=== PATIENT | female | born 2000 | race Two or more races ===

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

== ENCOUNTER 2020-07-29 09:06 | Emergency (ER) | payer MEDICAID, OTHER ==
[~2020-07-29] VITALS: Ht 165.1 cm; Wt 132.3 kg
[2020-07-29] MEDS ORDERED: BCP (09:19)
[2020-07-29] MEDS ORDERED: ACETAMINOPHEN 325 MG TAB PO ONE (09:30)
[2020-07-29 11:20] VITALS: BP 131/85
== END 2020-07-29 11:28 | disposition home or self-care (01) ==
LOC: M ED 09:06
DX: S92.351A Displaced fracture of fifth metatarsal bone, right foot, initial encounter for closed fracture (principal); W10.8XXA Fall (on) (from) other stairs and steps, initial encounter; Y92.9 Unspecified place or not applicable; Y93.9 Activity, unspecified; Y99.9 Unspecified external cause status; F41.9 Anxiety disorder, unspecified

== ENCOUNTER → 2020-09-22 | Outpatient (CLI) | payer SELFPAY ==
[~2020-09-22] MED LIST: BCP
== END ==
LOC: M LABSMTC 16:50
PROVIDERS: ATTEND Pediatrics
DX: Z20.828 Contact with and (suspected) exposure to other viral communicable diseases (principal)

== ENCOUNTER 2021-09-18 14:36 | Outpatient (CLI) | payer OTHER ==
[~2021-09-18] VITALS: Ht 167.6 cm; Wt 108.9 kg
[~2021-09-18 14:36] MED LIST changes: +ACETAMINOPHEN TAB 650MG DOSE (2X325MG) PO ONE; +ALBUTEROL 90 MCG/ACT 8GM HFA INHALER INH PRN; +ALBUTEROL SULFATE 2.5 MG/0.5 ML INH NEB SOLN INH PRN; +CASIRIVIMAB/IMDEVIMAB 1,200 MG in NS 250 ML IV ONE; +EPINEPHrine INJ 1 MG/ML 1ML AMP IM PRN; +NS 1,000 ML IV SCH; +diphenhydrAMINE 50MG/ML VIAL (J1200) IV PRN; +methylPREDNISolone 125MG 2ML VIAL IV PRN
[2021-09-18 15:27] VITALS: BP 132/63
[2021-09-18 15:57] VITALS: BP 109/61
[2021-09-18 16:27] VITALS: BP 116/59
[2021-09-18 17:27] VITALS: BP 113/65
== END 2021-09-18 17:27 | disposition home or self-care (01) ==
LOC: M OPCLI4PR 14:36
PROVIDERS: ATTEND Family Medicine
DX: U07.1 COVID-19 (principal)

== ENCOUNTER 2022-09-17 15:01 | Inpatient (IN) | payer OTHER ==
[~2022-09-17] VITALS: Ht 170.2 cm; Wt 143.6 kg
[~2022-09-17 15:01] MED LIST changes: -ACETAMINOPHEN TAB 650MG DOSE (2X325MG) PO ONE; -ALBUTEROL 90 MCG/ACT 8GM HFA INHALER INH PRN; -ALBUTEROL SULFATE 2.5 MG/0.5 ML INH NEB SOLN INH PRN; -CASIRIVIMAB/IMDEVIMAB 1,200 MG in NS 250 ML IV ONE; -EPINEPHrine INJ 1 MG/ML 1ML AMP IM PRN; -NS 1,000 ML IV SCH; -diphenhydrAMINE 50MG/ML VIAL (J1200) IV PRN; -methylPREDNISolone 125MG 2ML VIAL IV PRN
[2022-09-17] MEDS ORDERED: ONDA-195 PO (15:40)
[2022-09-17] MEDS ORDERED: ACET325C5 PO (15:40)
[2022-09-17] MEDS ORDERED: PRENTAB9 PO (15:40)
[2022-09-17] MEDS ORDERED: ECOT81TA5 PO (15:40)
[2022-09-17] MEDS ORDERED: HOME MED LIST COMPLETE! XX SCH (15:40)
[2022-09-17 16:18] LABS: HEMATOCRIT 33.9 % (36.0-47.0); HEMOGLOBIN 11.5 g/dl (12.0-15.5); MEAN CORPUSCULAR HEMOGLOBIN 29.1 pg (27.0-33.0); MEAN CORPUSCULAR HGB CONC 33.9 g/dl (32.0-36.5); MEAN CORPUSCULAR VOLUME 85.8 fl (80.0-96.0); PLATELET COUNT, AUTOMATED 238 10^3/uL (150-450); RED BLOOD COUNT 3.95 10^6/uL (4.00-5.40); WHITE BLOOD COUNT 9.4 10^3/uL (4.0-10.0)
[2022-09-17] MEDS ORDERED: LACTATED RINGER'S 1000 ML IV STA (16:31)
[2022-09-17] MEDS ORDERED: CARBOPROST TROMETHAMINE 250 MCG/ML AMP IM PRN (16:35)
[2022-09-17] MEDS ORDERED: TRANEXAMIC ACID INJection 1,000 MG in NS 100 ML IV PRN (16:35)
[2022-09-17] MEDS ORDERED: OXYTOCIN INJ 10UNITS/ML 1ML VIAL IM PRN (16:35)
[2022-09-17] MEDS ORDERED: LIDOCAINE 1% MDV 20ML VIAL INFIL PRN (16:35)
[2022-09-17] MEDS ORDERED: OXYTOCIN DRIP 30 UNITS in IV 1 EA IV PRN ×6 (16:35)
[2022-09-17] MEDS ORDERED: METHYLERGONOVINE MALEATE 0.2 MG/ML VIAL (J2210) IM PRN (16:35)
[2022-09-17 16:43] VITALS: BP 102/74
[2022-09-17] MEDS ORDERED: PENICILLIN G POTASSIUM 5 MU IV 5 MU in D5W MINI-BAG PLUS 100 ML IV STA (17:21)
[2022-09-17 18:19] VITALS: BP 116/70
[2022-09-17] MEDS: miSOPROStol 50MCG 1/2 TABLET PO SCH ×2 (18:20→21:30)
[2022-09-17 20:27] VITALS: BP 143/79
[2022-09-17] MEDS ORDERED: PEN G POT 3,000,000 UNIT/50 ML 3,000,000 UNIT in IV 1 EA IV SCH (21:25)
[2022-09-17 21:35] VITALS: BP 152/92
[2022-09-17 21:39] VITALS: BP 116/78
[2022-09-17 23:28] VITALS: BP 131/86
[2022-09-18] VITALS (15 sets, daily range): BP systolic 111–146; BP diastolic 58–80
[2022-09-18] MEDS: ONDANSETRON 4MG 2ML VIAL IV SCH ×6 (01:10→22:00)
[2022-09-18] MEDS: miSOPROStol 50MCG 1/2 TABLET PO SCH ×6 (01:30→21:30)
[2022-09-18] MEDS ORDERED: BUTORPHANOL 2 MG/ML 1ML VIAL IV ONE (02:00)
[2022-09-18] MEDS: LR 1,000 ML IV SCH ×2 (03:06→15:19)
[2022-09-18] MEDS ORDERED: **PENDING PCN ENTRY XX SCH (09:00)
[2022-09-18] MEDS ORDERED: PENICILLIN POTASSIUM MU IV SCH (14:30)
[2022-09-18] MEDS ORDERED: PENICILLIN G POTASSIUM 5 MU IV 5 MU in D5W MINI-BAG PLUS 100 ML IV ONE (14:30)
[2022-09-18] MEDS ORDERED: [UNRECOGNIZED DRUG - OTHER] IV SCH (14:30)
[2022-09-18] MEDS ORDERED: ACETAMINOPHEN TAB 650MG DOSE (2X325MG) PO PRN (15:55)
[2022-09-18] MEDS ORDERED: BUTORPHANOL 2 MG/ML 1ML VIAL IV PRN (18:25)
[2022-09-18] MEDS: PEN G POT 3,000,000 UNIT/50 ML 3,000,000 UNIT in IV 1 EA IV SCH (19:26)
[2022-09-18] MEDS ORDERED: PROMETHAZINE 25MG/ML 1ML VIAL IV ONE (21:00)
[2022-09-19] VITALS (55 sets, daily range): BP systolic 107–142; BP diastolic 57–82
[2022-09-19] MEDS: PEN G POT 3,000,000 UNIT/50 ML 3,000,000 UNIT in IV 1 EA IV SCH ×5 (00:18→16:02)
[2022-09-19] MEDS: miSOPROStol 50MCG 1/2 TABLET PO SCH ×2 (03:18→05:30)
[2022-09-19] MEDS: LR 1,000 ML IV SCH ×3 (08:24→16:02)
[2022-09-19] MEDS ORDERED: OXYTOCIN DRIP 30 UNITS in IV 1 EA IV SCH (08:35)
[2022-09-19] MEDS: ONDANSETRON 4MG 2ML VIAL IV SCH (08:56)
[2022-09-19] MEDS ORDERED: NALOXONE INJ 0.4MG/1ML VIAL IV PRN (10:45)
[2022-09-19] MEDS ORDERED: diphenhydrAMINE 50MG/ML VIAL IV PRN (10:45)
[2022-09-19] MEDS ORDERED: FENTANYL/ROPIVACAINE/NACL BAG 100 ML EPIDURAL SCH (10:45)
[2022-09-19] MEDS ORDERED: LR 500 ML IV PRN (10:45)
[2022-09-19] MEDS ORDERED: ePHEDrine SULFATE 25 MG/5 ML(5MG/ML) SYRINGE IVP PRN (10:45)
[2022-09-19] MEDS ORDERED: ONDANSETRON 4MG 2ML VIAL IV PRN (10:45)
[2022-09-19] MEDS ORDERED: EPIDURAL/PCA KEYS XX PRN (10:45)
[2022-09-19] MEDS ORDERED: IBUPROFEN 600MG TAB PO PRN (20:55)
[2022-09-19] MEDS ORDERED: DIBUCAINE 1% OINTMENT 30GM TOP PRN (20:55)
[2022-09-19] MEDS ORDERED: ACETAMINOPHEN TAB 650MG DOSE (2X325MG) PO PRN (20:55)
[2022-09-19] MEDS ORDERED: RHOGAM 300 MCG (1500 IU) INJ (J2790) IM SCH (20:55)
[2022-09-19] MEDS ORDERED: METHYLERGONOVINE MALEATE 0.2 MG TAB PO PRN (20:55)
[2022-09-19] MEDS ORDERED: IBUPROFEN 800 MG TAB PO PRN (20:55)
[2022-09-19] MEDS ORDERED: ANUSOL HC CREAM 30GM TOP PRN (20:55)
[2022-09-19] MEDS ORDERED: ACETAMINOPHEN 500 MG TAB PO PRN (20:55)
[2022-09-19] MEDS ORDERED: DOCUSATE SODIUM 100MG CAPSULE PO PRN (20:55)
[2022-09-19 21:02] LABS: CORD GAS ABE V -2.6; CORD GAS O2 SAT V 61.9 %; CORD GAS PCO2 V 42.6 mmHg; CORD GAS PH V 7.35 UNITS; CORD GAS PO2 V 25.9 mmHg; CORD GAS SBC V 21.2 MEQ/L; CORD GAS TCO2 V 24.3 MEQ/L
[2022-09-20 05:49] VITALS: BP 126/71
[2022-09-20 05:59] LABS: HEMOGLOBIN 9.1 g/dl (12.0-15.5); MEAN CORPUSCULAR HEMOGLOBIN 28.3 pg (27.0-33.0); MEAN CORPUSCULAR HGB CONC 32.5 g/dl (32.0-36.5); PLATELET COUNT, AUTOMATED 196 10^3/uL (150-450); RED BLOOD COUNT 3.22 10^6/uL (4.00-5.40); WHITE BLOOD COUNT 12.4 10^3/uL (4.0-10.0)
[2022-09-20] MEDS: PRENATAL VITAMINS CHEWABLE TABLET PO SCH (10:21)
[2022-09-20] MEDS: FERROUS SULFATE 325MG TAB PO SCH (10:21)
[2022-09-20 18:00] VITALS: BP 131/65
[2022-09-21 06:00] VITALS: BP 130/72
[2022-09-21] MEDS: PRENATAL VITAMINS CHEWABLE TABLET PO SCH (07:21)
[2022-09-21] MEDS: FERROUS SULFATE 325MG TAB PO SCH (07:21)
[2022-09-21] MEDS ORDERED: MEASLES,MUMPS,RUBELLA VACCINE INJ (MMR-II) (90707) SC.IMMUN ONE (09:00)
[2022-09-21] MEDS ORDERED: medroxyPROGESTERone ACET IM SUSP 150 MG/ML VIAL IM ONE (11:00)
== END 2022-09-21 12:10 | disposition home or self-care (01) | DRG 807 ==
LOC: M LDI 15:01 → M OBS 09-19 22:52
PROVIDERS: ADMIT Obstetrics & Gynecology; ATTEND Obstetrics & Gynecology
PROC: 3E0P7GC Introduction of Other Therapeutic Substance into Female Reproductive, Via Natural or Artificial Opening (ICD-10-PCS; 2022-09-17)
PROC: 10E0XZZ Delivery of Products of Conception, External Approach (ICD-10-PCS; principal; 2022-09-19)
PROC: 0KQM0ZZ Repair Perineum Muscle, Open Approach (ICD-10-PCS; 2022-09-19)
PROC: 10907ZC Drainage of Amniotic Fluid, Therapeutic from Products of Conception, Via Natural or Artificial Opening (ICD-10-PCS; 2022-09-19)
DX: O24.420 Gestational diabetes mellitus in childbirth, diet controlled (principal); Z37.0 Single live birth; Z3A.39 39 weeks gestation of pregnancy; O99.214 Obesity complicating childbirth; E66.9 Obesity, unspecified; O99.824 Streptococcus B carrier state complicating childbirth; O69.1XX0 Labor and delivery complicated by cord around neck, with compression, not applicable or unspecified; O70.1 Second degree perineal laceration during delivery